=== PATIENT | male | born 1985 | race African-American/Black ===

== ENCOUNTER 2022-12-09 05:25 | Emergency (ER) | payer OTHER, SELFPAY ==
[2022-12-09] MEDS ORDERED: HYDROcodone/Acetaminophen 7.5/325 mg Tablet ONE (05:59)
[2022-12-09] MEDS ORDERED: Ondansetron ODT 4 MG TAB ONE (08:24)
== END 2022-12-09 09:10 | disposition home or self-care (01) ==
LOC: ERS 05:25
DX: S42.031A Displaced fracture of lateral end of right clavicle, initial encounter for closed fracture (principal); F17.210 Nicotine dependence, cigarettes, uncomplicated; W22.8XXA Striking against or struck by other objects, initial encounter
CPT/HCPCS: 71250; 72125; Q0162